=== PATIENT | male | born 1960 | race Caucasian/White ===

== ENCOUNTER 2022-08-30 15:27 | Emergency (ER) | payer BC ==
[~2022-08-30] VITALS: Ht 182.9 cm; Wt 111.1 kg
[2022-08-30 15:29] VITALS: BP 141/81; PULSE 56; RESP 16; TEMP 98; O2SAT 97
--- NOTE | 2022-08-30 15:49 | NUR ---
62 yo m presents w/[facility] x 1 mth. pt states pain is dull constant 8/10 pain in bilateral temples radiating to neck. Pt took Tylenol without improvement in pain. Pt denies trauma, denies fever, chills, n,v,d,chills, chest pain, SOB, numbness or tingling. Pt denies dysuria. nad, safety maintained.
[2022-08-30] MEDS ORDERED: KETOROLAC 60 MG/2 ML VIAL IM ONE (16:45)
[2022-08-30] MEDS ORDERED: HYDR-5191 PO (16:48)
[2022-08-30] MEDS ORDERED: IBUP-2213 PO (16:48)
--- NOTE | 2022-08-30 17:01 | NUR ---
pt refused toradol. states he is already taking too many medications.
--- NOTE | 2022-08-30 17:21 | NUR ---
Patient discharged with v/s stable. Written and verbal after care instructions given and explained. Patient alert, oriented and verbalized understanding of instructions. Ambulatory with steady gait. All questions addressed prior to discharge. ID band removed. Patient advised to follow up with PMD. Rx of dydrocodone/acetaminophen, ibuprofen given. Opportunity to ask questions provided and answered.
--- NOTE | 2022-08-30 17:21 | NUR ---
The patient's care was reviewed and supervised by NAFISA CROCKER RN.
== END 2022-08-30 17:05 | disposition home or self-care (01) ==
LOC: MED 15:27
DX: R51.9 Headache, unspecified (principal); I10 Essential (primary) hypertension; Z79.899 Other long term (current) drug therapy; Z98.890 Other specified postprocedural states
CPT/HCPCS: 70450; 99284